=== PATIENT | female | born 1970 | race Caucasian/White ===

== ENCOUNTER → 2020-07-28 | Outpatient (CLI) | payer BC, OTHER ==
[~2020-07-28] MED LIST: BENICAR20 MG PO; COVID-19 VACC, MRNA(MODERNA)/PF 100 MCG/0.5 ML VIAL IM ONE; CYMBALTA30 MG PO; HYDROCODON-ACE1 EA11 PO; LYRICA75 MG PO; MODAFINIL100 MG PO; XANAX1 MG PO
== END | disposition home or self-care (01) ==
LOC: VACCPMC 15:56
DX: Z23 Encounter for immunization (principal); Z20.822 Contact with and (suspected) exposure to COVID-19
CPT/HCPCS: 91301

== ENCOUNTER → 2020-08-25 | Outpatient (CLI) | payer BC, OTHER | END | disposition home or self-care (01) | LOC: VACCPMC 15:01 | DX: Z23 Encounter for immunization (principal); Z20.822 Contact with and (suspected) exposure to COVID-19 | CPT/HCPCS: 91301 ==